=== PATIENT | male | born 1940 | race Caucasian/White ===

== ENCOUNTER 2017-04-02 14:40 | Outpatient (CLI) | payer MEDICARE ==
[2017-04-02 19:06] LABS: BASOPHILS % (AUTO) 0.5 %; EOSINOPHILS % (AUTO) 0.1 %; HGB - HEMOGLOBIN 13.5 g/dL (14.0-18.0); LYMPHOCYTES # (AUTO) 0.9 10^3/uL (1.5-3.5); LYMPHOCYTES % (AUTO) 10.1 %; MEAN CORPUSCULAR HEMOGLOBIN 31.7 pg (27.0-31.0); MEAN CORPUSCULAR HGB CONC 34.1 g/dL (32.0-36.0); MEAN CORPUSCULAR VOLUME 92.8 fL (80.0-94.0); MEAN PLATELET VOLUME 8.3 fL (7.4-11.4); MONOCYTES # (AUTO) 0.5 10^3/uL (0.0-1.0); NEUTROPHILS # (AUTO) 7.1 10^3/uL (1.5-6.6); NEUTROPHILS % (AUTO) 83.3 %; PLT - PLATELET COUNT 350 10^3/uL (130-450); RED BLOOD COUNT 4.27 10^6/uL (4.70-6.10); RED CELL DISTRIBUTION WIDTH 13.4 % (12.0-15.0); WHITE BLOOD COUNT 8.5 x10^3/uL (4.8-10.8)
== END 2017-04-02 14:41 | disposition home or self-care (01) ==
LOC: LAB.WCP 14:40
PROVIDERS: ATTEND Family Medicine
DX: M35.3 Polymyalgia rheumatica (principal); D64.9 Anemia, unspecified
CPT/HCPCS: 36415; 85025; 85651; 86140

== ENCOUNTER 2017-05-17 08:00 | Outpatient (CLI) | payer MEDICARE, OTHER ==
[2017-05-17 12:30] LABS: BASOPHILS # (AUTO) 0.1 10^3/uL (0.0-0.1); BASOPHILS % (AUTO) 0.6 %; EOSINOPHILS # (AUTO) 0.1 10^3/uL (0.0-0.7); EOSINOPHILS % (AUTO) 0.8 %; HGB - HEMOGLOBIN 13.8 g/dL (14.0-18.0); LYMPHOCYTES # (AUTO) 1.6 10^3/uL (1.5-3.5); LYMPHOCYTES % (AUTO) 13.9 %; MEAN CORPUSCULAR HEMOGLOBIN 31.5 pg (27.0-31.0); MEAN CORPUSCULAR HGB CONC 34.3 g/dL (32.0-36.0); MEAN CORPUSCULAR VOLUME 91.9 fL (80.0-94.0); MEAN PLATELET VOLUME 7.7 fL (7.4-11.4); MONOCYTES # (AUTO) 0.9 10^3/uL (0.0-1.0); MONOCYTES % (AUTO) 7.7 %; NEUTROPHILS # (AUTO) 8.9 10^3/uL (1.5-6.6); PLT - PLATELET COUNT 309 10^3/uL (130-450); RED BLOOD COUNT 4.39 10^6/uL (4.70-6.10); RED CELL DISTRIBUTION WIDTH 14.4 % (12.0-15.0); WHITE BLOOD COUNT 11.5 x10^3/uL (4.8-10.8)
== END 2017-05-17 08:01 | disposition home or self-care (01) ==
LOC: LAB.WCP 08:00
PROVIDERS: ATTEND Family Medicine
DX: M35.3 Polymyalgia rheumatica (principal); D64.9 Anemia, unspecified
CPT/HCPCS: 36415; 82728; 85025; 85651; 86140

== ENCOUNTER 2017-05-22 12:07 | Outpatient (CLI) | payer MEDICARE, OTHER | END 2017-05-22 12:08 | disposition home or self-care (01) | LOC: LAB 12:07 | PROVIDERS: ATTEND Family Medicine | DX: M79.604 Pain in right leg (principal); R60.9 Edema, unspecified ==

== ENCOUNTER 2017-06-30 11:21 | Outpatient (CLI) | payer MEDICARE, OTHER ==
[2017-06-30 19:21] LABS: HGB - HEMOGLOBIN 12.9 g/dL (14.0-18.0); MEAN CORPUSCULAR HEMOGLOBIN 31.1 pg (27.0-31.0); MEAN CORPUSCULAR HGB CONC 33.5 g/dL (32.0-36.0); MEAN CORPUSCULAR VOLUME 93.1 fL (80.0-94.0); RED BLOOD COUNT 4.14 10^6/uL (4.70-6.10); RED CELL DISTRIBUTION WIDTH 15.6 % (12.0-15.0); WHITE BLOOD COUNT 8.2 x10^3/uL (4.8-10.8)
[2017-06-30 19:29] LABS: CALCIUM 8.9 mg/dL (8.5-10.3); CREATININE 0.7 mg/dL (0.6-1.2)
[2017-06-30 19:42] LABS: THYROID STIMULATING HORMONE 1.4 uIU/mL (0.34-5.60)
[2017-06-30 19:44] LABS: FREE T4 (FREE THYROXINE) 1.07 ng/dL (0.58-1.64)
== END 2017-06-30 11:22 ==
LOC: LAB.WCP 11:21
PROVIDERS: ATTEND Family Medicine
DX: R00.0 Tachycardia, unspecified (principal); R60.9 Edema, unspecified; D64.9 Anemia, unspecified
CPT/HCPCS: 36415; 80048; 83880; 84439; 84443; 84481; 85027

== ENCOUNTER 2017-07-02 11:12 | Outpatient (CLI) | payer MEDICARE, OTHER | END 2017-07-02 11:13 | disposition home or self-care (01) | LOC: DI 11:12 | PROVIDERS: ATTEND Family Medicine | DX: R00.0 Tachycardia, unspecified (principal); R60.9 Edema, unspecified | CPT/HCPCS: 93306 ==

== ENCOUNTER 2018-10-19 08:00 | Outpatient (CLI) | payer MEDICARE, OTHER ==
[2018-10-19 13:04] LABS: BASOPHILS # (AUTO) 0.1 10^3/uL (0.0-0.1); BASOPHILS % (AUTO) 0.9 %; EOSINOPHILS # (AUTO) 0.1 10^3/uL (0.0-0.7); EOSINOPHILS % (AUTO) 1.5 %; HGB - HEMOGLOBIN 12.1 g/dL (14.0-18.0); LYMPHOCYTES # (AUTO) 1.7 10^3/uL (1.5-3.5); MEAN CORPUSCULAR HEMOGLOBIN 29.9 pg (27.0-31.0); MEAN CORPUSCULAR HGB CONC 33.2 g/dL (32.0-36.0); MEAN CORPUSCULAR VOLUME 90.1 fL (80.0-94.0); MEAN PLATELET VOLUME 9.4 fL (7.4-11.4); MONOCYTES % (AUTO) 10.4 %; NEUTROPHILS # (AUTO) 6.6 10^3/uL (1.5-6.6); NEUTROPHILS % (AUTO) 68.5 %; PLT - PLATELET COUNT 290 10^3/uL (130-450); RED BLOOD COUNT 4.05 10^6/uL (4.70-6.10); WHITE BLOOD COUNT 9.6 x10^3/uL (4.8-10.8)
[2018-10-19 13:06] LABS: ALBUMIN 3.6 g/dL (3.2-5.5); ALBUMIN/GLOBULIN RATIO 1.1 (1.0-2.2); BILIRUBIN,TOTAL 0.4 mg/dL (0.2-1.0); CALCIUM 9.1 mg/dL (8.5-10.3); CREATININE 0.9 mg/dL (0.6-1.2); TOTAL PROTEIN 6.9 g/dL (6.7-8.2)
== END 2018-10-19 23:59 | disposition home or self-care (01) ==
LOC: LAB.WCP 08:00
PROVIDERS: ATTEND Internal Medicine Rheumatology
DX: M05.79 Rheumatoid arthritis with rheumatoid factor of multiple sites without organ or systems involvement (principal)
CPT/HCPCS: 36415; 80053; 81599; 85025; 85651; 86480

== ENCOUNTER 2018-11-04 10:49 | Outpatient (CLI) | payer MEDICARE, OTHER ==
--- NOTE | 2018-11-04 14:10 | DEXA Report ---
Reason: OSTEOPOROSIS Procedure Date: 11/04/2018 Accession Number: [id number] / [id number] Procedure: DEX - Dexa Spine and/or Hip CPT Code: FULL RESULT: EXAM: Dexa Spine and/or Hip DATE: 11/04/2018 11:46 AM CLINICAL HISTORY: Rheumatoid arthritis, prednisone use TECHNIQUE: Dual energy x-ray absorptiometry (DXA) was performed on a [employer] System. Regions measured are the AP Spine, femoral neck, and if needed forearm. COMPARISON: None. In accordance with the International Society for Clinical Densitometry (ISCD) guidelines, data from previous exams may be reanalyzed using current recommendations and techniques. This is done to allow a more accurate basis for comparison with the current study. FINDINGS: The data for the lumbar spine is as follows: BMD (g/cm/cm) T-SCORE Z-SCORE REGION L1 1.025 -1.1 -0.5 L2 1.137 -0.9 -0.3 L3 1.167 -0.6 0.0 L4 1.370 1.1 1.7 TOTAL 1.191 -0.2 0.3 NOTE: All evaluable vertebrae are used for classification The data for the hip is as follows: BMD (g/cm/cm) T-SCORE Z-SCORE REGION Neck 0.734 -2.6 -1.2 TOTAL 0.744 -2.5 -1.6 NOTE: The femoral neck or total proximal femur, whichever is lowest, is used for classification. IMPRESSION: THE WHO CLASSIFICATION BASED ON THE INTERNATIONAL REFERENCE STANDARD IS OSTEOPOROSIS, REFERENCE LEFT FEMORAL NECK. THE FRACTURE RISK IS HIGH. RECOMMENDATION: Patients with diagnosis of osteoporosis or osteopenia should have regular bone mineral density assessment. For those eligible for Medicare, routine testing is allowed once every 2 years. Testing frequency can be increased for patients who have rapidly progressing disease or for those who are receiving medical therapy to restore bone mass. COMMENT: World Health Organization (WHO) definitions for osteoporosis and osteopenia: NORMAL BMD: T-score at -1.0 or higher, fracture risk is low OSTEOPENIA BMD: T-score between -1.0 and -2.5, fracture risk is increased. OSTEOPOROSIS BMD: T-score at -2.5 or lower, fracture risk is high. National Osteoporosis Foundation recommends: 1. Obtain adequate dietary calcium (at least 1200 mg per day) and vitamin D (400-800 international units per day). 2. Participate, as appropriate, in regular weightbearing and muscle-strengthening exercise. 3. Avoid tobacco use and reduce alcohol and caffeine intake. 4. For more detailed information see the website at www.NOF.org.
== END 2018-11-04 10:50 | disposition home or self-care (01) ==
LOC: DI 10:49
PROVIDERS: ATTEND Internal Medicine Rheumatology
DX: M81.0 Age-related osteoporosis without current pathological fracture (principal)
CPT/HCPCS: 77080

== ENCOUNTER 2020-08-21 14:36 | Outpatient (CLI) | payer MEDICARE, OTHER ==
[2020-08-21 18:13] LABS: ALBUMIN 4.1 g/dL (3.2-5.5); ALBUMIN/GLOBULIN RATIO 1.4 (1.0-2.2); CALCIUM 9.4 mg/dL (8.5-10.3); CREATININE 0.9 mg/dL (0.6-1.2); POTASSIUM 3.9 mmol/L (3.5-5.0); TOTAL PROTEIN 7.1 g/dL (6.7-8.2)
[2020-08-21 18:27] LABS: BASOPHILS # (AUTO) 0.1 10^3/uL (0.0-0.1); BASOPHILS % (AUTO) 1.3 %; EOSINOPHILS # (AUTO) 0.2 10^3/uL (0.0-0.7); EOSINOPHILS % (AUTO) 1.9 %; HGB - HEMOGLOBIN 12.7 g/dL (14.0-18.0); LYMPHOCYTES # (AUTO) 1.6 10^3/uL (1.5-3.5); LYMPHOCYTES % (AUTO) 18.5 %; MEAN CORPUSCULAR HEMOGLOBIN 31.7 pg (27.0-31.0); MEAN CORPUSCULAR HGB CONC 32.6 g/dL (32.0-36.0); MEAN CORPUSCULAR VOLUME 97.3 fL (80.0-94.0); MEAN PLATELET VOLUME 9.8 fL (7.4-11.4); MONOCYTES # (AUTO) 1.1 10^3/uL (0.0-1.0); MONOCYTES % (AUTO) 12.6 %; NEUTROPHILS # (AUTO) 5.6 10^3/uL (1.5-6.6); NEUTROPHILS % (AUTO) 65.1 %; PLT - PLATELET COUNT 356 10^3/uL (130-450); RED BLOOD COUNT 4.01 10^6/uL (4.70-6.10); RED CELL DISTRIBUTION WIDTH 13.2 % (12.0-15.0); WHITE BLOOD COUNT 8.6 x10^3/uL (4.8-10.8)
== END 2020-08-21 23:59 | disposition home or self-care (01) ==
LOC: LAB.WCP 14:36
PROVIDERS: ATTEND Internal Medicine Rheumatology
DX: M05.79 Rheumatoid arthritis with rheumatoid factor of multiple sites without organ or systems involvement (principal)
CPT/HCPCS: 36415; 80053; 85025; 85651

== ENCOUNTER 2020-09-03 13:53 | Outpatient (CLI) | payer MEDICARE, OTHER | END 2020-09-03 23:59 | disposition home or self-care (01) | LOC: LAB.WCP 13:53 | PROVIDERS: ATTEND Family Medicine | DX: R05 Cough (principal); Z20.822 Contact with and (suspected) exposure to COVID-19 ==

== ENCOUNTER 2020-09-03 15:53 | Outpatient (CLI) | payer MEDICARE, OTHER ==
--- NOTE | 2020-09-05 13:18 | XRAY Report ---
PROCEDURE: Chest 2 View X-Ray INDICATIONS: COUGH TECHNIQUE: 2 view(s) of the chest. COMPARISON: None. FINDINGS: Surgical changes and devices: None. Lungs and pleura: No pleural effusions or pneumothorax. Lungs are clear, aside from mild lingular a irspace opacity. Hilar hernia present. Mediastinum: Mediastinal contours are normal. Heart size is normal. Bones and chest wall: No suspicious bony abnormalities. Soft tissues appear unremarkable. IMPRESSION: Mild subtle lingular airspace opacity which could represent early pneumonia. Recommend c linical correlation and follow-up. Follow-up chest radiography to complete resolution is recommended. Reviewed by: ROJELIO Herrera on 09/05/2020 1:17 PM PDT Approved by: Octavio Karimi on 09/05/2020 1:17 PM PDT Station ID: [id number]
== END 2020-09-03 15:54 | disposition home or self-care (01) ==
LOC: DI.N 15:53
PROVIDERS: ATTEND Family Medicine
DX: R91.8 Other nonspecific abnormal finding of lung field (principal); R05 Cough; Z20.822 Contact with and (suspected) exposure to COVID-19
CPT/HCPCS: 71046; U0004

== ENCOUNTER 2020-12-25 11:40 | Outpatient (CLI) | payer MEDICARE, OTHER ==
[2020-12-25 17:50] LABS: BASOPHILS # (AUTO) 0.1 10^3/uL (0.0-0.1); BASOPHILS % (AUTO) 1.3 %; EOSINOPHILS # (AUTO) 0.1 10^3/uL (0.0-0.7); EOSINOPHILS % (AUTO) 1.8 %; HCT - HEMATOCRIT 40.3 % (42.0-52.0); HGB - HEMOGLOBIN 13.6 g/dL (14.0-18.0); LYMPHOCYTES # (AUTO) 1.7 10^3/uL (1.5-3.5); LYMPHOCYTES % (AUTO) 27.4 %; MEAN CORPUSCULAR HEMOGLOBIN 32.3 pg (27.0-31.0); MEAN CORPUSCULAR HGB CONC 33.7 g/dL (32.0-36.0); MEAN CORPUSCULAR VOLUME 95.7 fL (80.0-94.0); MEAN PLATELET VOLUME 10.1 fL (7.4-11.4); MONOCYTES # (AUTO) 0.9 10^3/uL (0.0-1.0); MONOCYTES % (AUTO) 13.9 %; NEUTROPHILS # (AUTO) 3.4 10^3/uL (1.5-6.6); NEUTROPHILS % (AUTO) 55.3 %; PLT - PLATELET COUNT 274 10^3/uL (130-450); RED BLOOD COUNT 4.21 10^6/uL (4.70-6.10); RED CELL DISTRIBUTION WIDTH 13.2 % (12.0-15.0); WHITE BLOOD COUNT 6.1 x10^3/uL (4.8-10.8)
[2020-12-25 18:23] LABS: ALBUMIN 3.9 g/dL (3.2-5.5); ALBUMIN/GLOBULIN RATIO 1.4 (1.0-2.2); BILIRUBIN,TOTAL 0.8 mg/dL (0.2-1.0); CALCIUM 9.3 mg/dL (8.5-10.3); CREATININE 0.9 mg/dL (0.6-1.2); POTASSIUM 4.4 mmol/L (3.5-5.0); TOTAL PROTEIN 6.7 g/dL (6.7-8.2)
== END 2020-12-25 23:59 | disposition home or self-care (01) ==
LOC: LAB.WCP 11:40
PROVIDERS: ATTEND Internal Medicine Rheumatology
DX: M05.79 Rheumatoid arthritis with rheumatoid factor of multiple sites without organ or systems involvement (principal)
CPT/HCPCS: 36415; 80053; 85025; 85651

== ENCOUNTER 2021-10-21 09:12 | Outpatient (CLI) | payer MEDICARE, OTHER | END 2021-10-21 09:13 | disposition home or self-care (01) | LOC: DI 09:12 | PROVIDERS: ATTEND Family Medicine | DX: R06.09 Other forms of dyspnea (principal); I51.7 Cardiomegaly; I77.810 Thoracic aortic ectasia | CPT/HCPCS: 93306 ==

== ENCOUNTER 2022-07-03 14:37 | Outpatient (CLI) | payer MEDICARE, OTHER ==
[2022-07-03 14:53] LABS: BASOPHILS # (AUTO) 0.1 10^3/uL (0.0-0.1); EOSINOPHILS # (AUTO) 0.1 10^3/uL (0.0-0.7); EOSINOPHILS % (AUTO) 1.6 %; HCT - HEMATOCRIT 36.7 % (42.0-52.0); HGB - HEMOGLOBIN 12.2 g/dL (14.0-18.0); LYMPHOCYTES # (AUTO) 1.7 10^3/uL (1.5-3.5); LYMPHOCYTES % (AUTO) 20.5 %; MEAN CORPUSCULAR HEMOGLOBIN 32.4 pg (27.0-31.0); MEAN CORPUSCULAR HGB CONC 33.2 g/dL (32.0-36.0); MEAN CORPUSCULAR VOLUME 97.6 fL (80.0-94.0); MEAN PLATELET VOLUME 9.3 fL (7.4-11.4); MONOCYTES # (AUTO) 0.7 10^3/uL (0.0-1.0); MONOCYTES % (AUTO) 8.6 %; NEUTROPHILS # (AUTO) 5.5 10^3/uL (1.5-6.6); NEUTROPHILS % (AUTO) 67.9 %; PLT - PLATELET COUNT 297 10^3/uL (130-450); RED BLOOD COUNT 3.76 10^6/uL (4.70-6.10); RED CELL DISTRIBUTION WIDTH 14.7 % (12.0-15.0); WHITE BLOOD COUNT 8.1 x10^3/uL (4.8-10.8)
[2022-07-03 15:31] LABS: THYROID STIMULATING HORMONE 2.06 uIU/mL (0.34-5.60)
[2022-07-03 15:35] LABS: ALBUMIN 3.7 g/dL (3.2-5.5); ALBUMIN/GLOBULIN RATIO 1.2 (1.0-2.2); ALKALINE PHOSPHATASE 51 IU/L (42-121); ALT ALANINE AMINOTRANSFERASE 19 IU/L (10-60); AST ASPARTATE AMINOTRANSFERASE 22 IU/L (10-42); BILIRUBIN,TOTAL 1.6 mg/dL (0.2-1.0); BUN - BLOOD UREA NITROGEN 16 mg/dL (6-20); CALCIUM 9.1 mg/dL (8.5-10.3); CARBON DIOXIDE - CO2 24 mmol/L (21-32); CHLORIDE 108 mmol/L (101-111); CHOL/HDL RATIO 2.3 (<5.0); CHOLESTEROL 227 mg/dL; CREATININE 0.9 mg/dL (0.6-1.2); GFR - MDRD 81 (>89); GLUCOSE 92 mg/dL (70-100); HDL CHOLESTEROL 100 mg/dL; POTASSIUM 4.1 mmol/L (3.5-5.0); SODIUM 139 mmol/L (135-145); TOTAL PROTEIN 6.7 g/dL (6.7-8.2); TRIGLYCERIDES 39 mg/dL
[2022-07-03 20:21] LABS: ESTIMATED AVERAGE GLUCOSE 100 mg/dL (70-100); HEMOGLOBIN A1c% 5.1 % (4.27-6.07)
== END 2022-07-03 14:38 | disposition home or self-care (01) ==
LOC: LAB 14:37
PROVIDERS: ATTEND Nurse Practitioner Family
DX: Z00.00 Encounter for general adult medical examination without abnormal findings (principal); E66.9 Obesity, unspecified; E78.5 Hyperlipidemia, unspecified
CPT/HCPCS: 36415; 80053; 80061; 83036; 83721; 84443; 85025

== ENCOUNTER 2022-07-03 15:30 | Emergency (ER) | payer MEDICARE, OTHER ==
--- NOTE | 2022-07-03 16:54 | XRAY Report ---
PROCEDURE: Knee 4 View LT INDICATIONS: knee inj TECHNIQUE: 4 views of the left knee(s) were acquired. COMPARISON: None. FINDINGS: Bones: No fractures or dislocations. No suspicious bony lesions. Severe degenerative arthritis wi th bulky tricompartmental osteophytes, severe medial compartment joint space loss, and moderate later al compartment joint space loss. Soft tissues: Trace knee joint effusion. No suspicious soft tissue calcifications or masses. IMPRESSION: No acute bony abnormality. Severe degenerative arthritis of the left knee. Reviewed by: Simone Espitia MD on 07/03/2022 4:53 PM PDT Approved by: Simone Espitia MD on 07/03/2022 4:53 PM PDT Station ID: [id number]
--- NOTE | 2022-07-03 16:58 | ED Physician Documentation ---
PD HPI UPPER EXT INJURY - Stated complaint Stated Complaint: L KNEE INJ - Chief complaint Chief Complaint: Trauma Ext - History obtained from History obtained from: Patient - Additonal information Additional information: He fell a few days ago, he is not sure if he injured his left knee then. He does have rheumatoid arthritis. Starting last night he has severe posterior left knee pain and he cannot straighten the leg. PD PAST MEDICAL HISTORY - Past Medical History Musculoskeletal: Rheumatoid arthritis - Present Medications Home Medications: Ambulatory Orders Medication Instructions Recorded Confirmed B-Complex with Vitamin C [Vitamin 1 each PO 09/13/18 B-Complex with Vit C] Cholecalciferol (Vitamin D3) 1,000 unit PO 09/13/18 [Vitamin D3] Digestive 8/L.acidoph/Pectin 1 each PO 09/13/18 [Digestive Enzymes Tablet] Krill/[place]-3/Dha/Epa/Lipids 1 each PO 09/13/18 [Krill Oil 350 mg Softgel] L.acid/L.casei/B.bif/B.abdoulaye/Fos 1 each PO 09/13/18 [Probiotic Blend Capsule] Methotrexate Sodium/Pf 10 mg IJ Q7D 09/13/18 09/13/18 [Methotrexate 50 mg/2 ml Vial] [place]-3/Dha/Epa/Fish Oil [Fish Oil 1 each PO 09/13/18 1,000 mg Softgel] Tumeric 1 cap PO DAILY 09/13/18 Ubidecarenone/Vit E Acet [Co Q-10 1 each PO 09/13/18 100 mg Softgel] methylPREDNISolone 4 tab PO BID 09/13/18 09/13/18 [Methylprednisolone] HYDROcod/ACETAM 5/325 [[place] 5/325] 1 - 2 tab PO Q6H PRN #15 tablet 07/03/22 predniSONE [Deltasone] 20 mg PO [id number] #21 tab 07/03/22 - Allergies Allergies/Adverse Reactions: Allergies Allergy/AdvReac Type Severity Reaction Status Date / Time No Known Drug Allergies Allergy Verified 07/03/22 15:50 PD ED PE NORMAL - Vitals Vital signs reviewed: Yes - General General: Alert and oriented X 3, No acute distress - Extremities Extremities: Other (Both knees have effusions. Neither or warm nor red nor tender anteriorly. He is tender over the insertion of the hamstring tendon posteriorly. Bedside ultrasound does not demonstrate a DVT in that area nor a Hart's cyst.) - Neuro Neuro: Alert and oriented X 3, Normal speech Results - Vitals Vitals: Vital Signs - 24 hr 07/03/22 07/03/22 15:45 17:28 Temperature 36.1 C L Heart Rate 62 60 Respiratory 16 16 Rate Blood Pressure 121/67 148/75 H O2 Saturation 96 99 Oxygen O2 Source Room air - Rads (name of study) 4 view x-ray of the left knee shows severe degenerative changes without fracture Relevant Findings:: Final report received, EMP independent interpretation of test PD Medical Decision Making - ED course ED course: Seems like hamstring tendinitis. He is placed in a locked knee brace in flexion as it is extension that really hurts him and given some steroids and hydrocodone pending orthopedic follow-up. Departure - Departure Disposition: 01 Home, Self Care Clinical Impression: Hamstring tendinitis of left thigh Condition: Good Record reviewed to determine appropriate education?: Yes Instructions: ED Knee Pain [facility] Follow-Up: Orthopedic Care [Provider Group] Prescriptions: predniSONE [Deltasone] 20 mg PO [id number] #21 tab HYDROcod/ACETAM 5/325 [[place] 5/325] 1 - 2 tab PO Q6H PRN #15 tablet PRN Reason: Pain Comments: I sent your prescriptions electronically to [facility] in [place]. You should follow-up with the orthopedic surgeon in a week or 2. Return for new or worsening symptoms. You can wear the locked knee brace for comfort, you do not need to wear it when sitting in bed. I am prescribing a short course of narcotic pain medication for you. These are potentially dangerous and addictive medications that should be used carefully. These medications may constipate you. Take an agic-ijm-zybxijs stool softener (docusate) twice daily with plenty of water while taking these medications. If you go 24 hours without a bowel movement, take xigu-rwb-xnyqvws miralax, per package instructions. Do not drink or drive while taking these medications. If you received narcotic or sedating medications while in the emergency department, do not drive for 24 hours. Store this medication in a safe, secure place and out of reach of children. It is a violation of federal law to give or sell this medication to another person or to use in a manner other than prescribed. The ED will not refill narcotic prescriptions, including prescriptions lost or stolen. To dispose of unwanted medications: 1. [facility] at [address] in [place] has a medication drop box. They accept prescription medications (in pill form) Wednesday through Wednesday 9:00 a.m. to 5:00 p.m. 2. The [facility] accepts prescription medications (in pill form only) for disposal year round. Call for more information. 3. Contact the [facility] for the next [facility] sponsored prescription drug collection event. , [phone], or [phone]; Note that many narcotic pain relievers also contain Tylenol/acetaminophen. Please ensure that your total dose of acetaminophen from all sources does not exceed 3 g (3000 mg) per day. Discharge Date/Time: 07/03/22 17:29
[2022-07-03 17:30] VITALS: BP 148/75
== END 2022-07-03 17:29 | disposition home or self-care (01) ==
LOC: ED 15:30
DX: M76.892 Other specified enthesopathies of left lower limb, excluding foot (principal); Z00.00 Encounter for general adult medical examination without abnormal findings; E66.9 Obesity, unspecified; E78.5 Hyperlipidemia, unspecified
CPT/HCPCS: 36415; 80053; 80061; 83036; 83721; 84443; 85025; 99283; 99284

== ENCOUNTER 2022-08-17 11:37 | Outpatient (CLI) | payer MEDICARE, OTHER ==
[2022-08-17 12:15] LABS: BASOPHILS # (AUTO) 0.1 10^3/uL (0.0-0.1); BASOPHILS % (AUTO) 0.8 %; EOSINOPHILS # (AUTO) 0.2 10^3/uL (0.0-0.7); EOSINOPHILS % (AUTO) 2.3 %; HCT - HEMATOCRIT 35.2 % (42.0-52.0); HGB - HEMOGLOBIN 11.7 g/dL (14.0-18.0); LYMPHOCYTES # (AUTO) 1.7 10^3/uL (1.5-3.5); LYMPHOCYTES % (AUTO) 17.8 %; MEAN CORPUSCULAR HEMOGLOBIN 32.8 pg (27.0-31.0); MEAN CORPUSCULAR HGB CONC 33.2 g/dL (32.0-36.0); MEAN CORPUSCULAR VOLUME 98.6 fL (80.0-94.0); MEAN PLATELET VOLUME 9.3 fL (7.4-11.4); MONOCYTES # (AUTO) 1.3 10^3/uL (0.0-1.0); MONOCYTES % (AUTO) 13.7 %; NEUTROPHILS # (AUTO) 6.1 10^3/uL (1.5-6.6); PLT - PLATELET COUNT 277 10^3/uL (130-450); RED BLOOD COUNT 3.57 10^6/uL (4.70-6.10); RED CELL DISTRIBUTION WIDTH 14.5 % (12.0-15.0); WHITE BLOOD COUNT 9.6 x10^3/uL (4.8-10.8)
[2022-08-17 12:38] LABS: ALBUMIN 3.5 g/dL (3.2-5.5); ALBUMIN/GLOBULIN RATIO 1.2 (1.0-2.2); BILIRUBIN,TOTAL 0.5 mg/dL (0.2-1.0); CALCIUM 8.8 mg/dL (8.5-10.3); CREATININE 0.9 mg/dL (0.6-1.2); POTASSIUM 3.9 mmol/L (3.5-5.0); TOTAL PROTEIN 6.4 g/dL (6.7-8.2); URIC ACID 4.7 mg/dL (2.6-7.2)
--- NOTE | 2022-08-18 09:03 | Ultrasound Report ---
PROCEDURE: Duplex Ext Veins Right INDICATIONS: PEDAL EDEMA, RIGHT LOWER EXTREMITY TECHNIQUE: Real-time imaging, as well as color and pulse Doppler interrogation, were performed of the lower extr emity deep veins from the inguinal ligament to the popliteal fossa. COMPARISON: None. FINDINGS: The deep veins are normally compressible, and free of intraluminal thrombus. Color and pu lse Doppler demonstrate normal phasic intraluminal flow. There is normal augmentation response to di stal compression maneuver. IMPRESSION: No DVT in the right lower extremity. Reviewed by: Octavio Karimi on 08/18/2022 8:01 AM BLUE Approved by: Octavio Karimi on 08/18/2022 8:01 AM BLUE Station ID: [id number]
== END 2022-08-17 11:38 | disposition home or self-care (01) ==
LOC: LAB 11:37
PROVIDERS: ATTEND Nurse Practitioner
DX: M25.571 Pain in right ankle and joints of right foot (principal); R60.0 Localized edema
CPT/HCPCS: 36415; 80053; 84550; 85025

== ENCOUNTER 2022-10-22 13:42 | Outpatient (CLI) | payer MEDICARE, OTHER ==
[2022-10-22 18:12] LABS: FERRITIN 90.1 ng/mL (23.9-336.2)
== END 2022-10-22 13:43 | disposition home or self-care (01) ==
LOC: LAB.N 13:42
PROVIDERS: ATTEND Nurse Practitioner Family
DX: D53.9 Nutritional anemia, unspecified (principal)
CPT/HCPCS: 36415; 82607; 82728; 82746; 83540; 84466

== ENCOUNTER 2022-10-27 12:22 | Outpatient (CLI) | payer MEDICARE, OTHER ==
[2022-10-27 12:41] LABS: FECAL OCCULT BLOOD (FIT) NEGATIVE (NEGATIVE)
--- NOTE | 2022-10-27 12:55 | XRAY Report ---
PROCEDURE: Chest 2 View X-Ray INDICATIONS: SOB TECHNIQUE: 2 views of the chest were acquired. COMPARISON: Chest x-ray 09/03/2020 FINDINGS: Surgical changes and devices: None. Lungs and pleura: No pleural effusions or pneumothorax. Lungs are clear. Mediastinum: Mediastinal contours demonstrate retrocardiac lucency suggestive of hiatal hernia. Hear t size is enlarged. Bones and chest wall: No suspicious bony lesions. Overlying soft tissues appear unremarkable. IMPRESSION: No acute cardiopulmonary process. Reviewed by: Sushma Lopes MD on 10/27/2022 12:53 PM PDT Approved by: Sushma Lopes MD on 10/27/2022 12:53 PM PDT Station ID: [id number]
== END 2022-10-27 12:23 | disposition home or self-care (01) ==
LOC: DI 12:22
PROVIDERS: ATTEND Nurse Practitioner Family
DX: R06.02 Shortness of breath (principal); Z86.2 Personal history of diseases of the blood and blood-forming organs and certain disorders involving the immune mechanism; D53.9 Nutritional anemia, unspecified
CPT/HCPCS: 82274

== ENCOUNTER 2022-11-26 09:17 | Outpatient (CLI) | payer MEDICARE, OTHER ==
--- NOTE | 2022-11-26 10:10 | Sleep Patient Instructions ---
Sleep Center Visit Summary - Patient Visit Information Reason for Visit: Initial consult for evaluation of sleep disordered breathing and other sleep issues. - Patient Instructions Instructions Attached: Sleep Study, Sleep Clinic Visit, Sleep Study Home Monitor Additional Instructions: You will be completing a sleep study, either an in-lab polysomnography (PSG) or home sleep study (HST). You will follow-up in the sleep care office after the sleep study is completed to hear the results and talk about therapy, if needed. You will be called by our office staff to schedule this appointment, but you may contact us with any questions. - Clinic Information Contact: [facility] [address] [place] [address] [email or web address] T: [phone]
--- NOTE | 2022-11-26 10:14 | SLEEP CARE CONSULTATION ---
Information from patient questionnaire entered by Jose Kimbrough. I have reviewed and concur with the information entered by Jose Kimbrough. This document represents the service I personally performed and the decisions made by me, Shaye Keys ARNP. History of Present Illness Service Date and Time: 11/26/2022916 Reason for Visit: New patient, Previously diagnosed sleep apnea Chief Complaint: reports: Frequent awakenings at night Date of Onset: for 5 to 10 years Usual bedtime: 9 PM - 10 PM Time it takes to fall asleep: 5 to 10 minutes Snores at night: Yes Observed to quit breathing while asleep: Yes Sleeps alone due to snoring: Yes Number of times waking at night: 3 or 4 times Reasons for waking at night: reports: Bathroom. denies: Choking, Gasping for air Toss, Turn, or Twitch while sleeping: No Recalls having dreams: Yes Usually gets out of bed at: 6 to 7 AM Feels refreshed in the morning: Yes Morning headache: No Sleepy or fatigued during the day: Yes (Sometimes) Ever fallen asleep while driving: Yes (drowsy driving, no accidents) Takes day naps: Yes (Sometimes; couple times a month) Dreams during day naps: No Prior sleep studies: Yes Year and Where: 5 or 6 years ago - [facility] Additional HPI information: I had the pleasure of seeing TERRANCE WIN today regarding the possibility of him having a sleep disorder. His current complaint is frequent night awakenings. He was diagnosed with sleep apnea and put on a CPAP about 5-6 years ago but he is not currently using his CPAP. He still has his ResMed Airsense machine that was set on 6-12 cmH2O that he got from [employer]. He states he could not use the mask because he has difficulty breathing through his nose. His tells him that he snores "terribly" and will stop breathing when sleeping. He is currently sleeping separately because of the loud snoring. He has rheumatoid arthritis and is suppose to start PT. - Parasomnia Symptoms Ever been unable to move upon waking from sleep: No Walks in sleep: No Talks in sleep: No Ever acted out dreams in sleep: No Ever felt weak in the knees when startled or emotional: No Bothered by creepy, crawly, restless sensations in legs: No Problems with memory or concentration: No CPAP Compliance Data Compliance data discussion: He has a ResMed Airsense CPAP machine set at 6-12 cmH2O. He was using a nasal mask but could not use it because he is a mouth breather. He tried to use it but nothing regular. He has not used it for 5 years. Subjective Initial [place] Sleepiness Scale score: 4 (in 2022) Past Medical History Past Medical History: reports: Arthritis (Rheumatoid), Anemia Social History The patient's occupation is a retiree. Patient is and lives in [place]. Have you smoked in the past 12 months: No Alcohol use: Yes Alcohol amount and frequency: 1 or 2 most nights Caffeine use: Yes Caffeine amount and frequency: 2 or 3 cups daily Family History Family history of sleep disordered breathing: No Allergies and Home Medications Known drug allergies: No Drug allergies reviewed: Yes Home medication list reviewed: Yes (as listed) Allergy and home medication list: Allergies No Known Drug Allergies Allergy (Verified 11/25/22 08:41) Home Medications Medication Instructions Recorded Confirmed Last Taken Type Cholecalciferol (Vitamin D3) 1,000 unit PO 09/13/18 Unknown History [Vitamin D3] Digestive 8/L.acidoph/Pectin 1 each PO 09/13/18 Unknown History [Digestive Enzymes Tablet] L.acid/L.casei/B.bif/B.abdoulaye/Fos 1 each PO 09/13/18 Unknown History [Probiotic Blend Capsule] Methotrexate Sodium/Pf 10 mg IJ Q7D 09/13/18 11/26/22 Unknown History [Methotrexate 50 mg/2 ml Vial] Tumeric 1 cap PO DAILY 09/13/18 11/26/22 Unknown History Review of Systems Cardiovascular: denies: high blood pressure Gastrointestinal: denies: heartburn Neurological: denies: headaches Psychiatric: denies: anxiety, depression Ear/Nose/Throat: reports: injury to nose, tonsillectomy Endocrine: reports: sluggishness (/tired) Physical Exam Vital signs obtained and entered by: Shaye Martinez NP Blood Pressure: 142/87 Cuff size: wrist (right) Heart Rate: 61 O2 Saturation: 97 Height: 5 ft 10 in Weight: 206 lb 9.6 oz Body Mass Index: 29.6 BMI Classification: Overweight Neck circumference: 15.5 (inches) Mouth and throat: narrow oropharynx Soft palate: long Hard palate: normal Uvula: normal Uvula visualization: 0% Mallampati Class IV Tongue: normal in size Tonsils: absent bilaterally Neck: normal w/o lymphadenopathy or thyromegaly Heart: irregular rhythm Lungs: clear bilaterally Impression and Plan 1. Suspected Obstructive Sleep Apnea-Hypopnea Syndrome, as previously diagnosed and as suggested by a history of loud and irregular snoring, observed cessation of breath while asleep and frequent awakening during the night. He had a previous study which he said showed him probably moderate to severe sleep apnea. I do not have a copy of that study. He has not been using his CPAP in 5 years or more. I recommend proceeding to polysomnography to confirm the diagnosis and to assess severity. I obtained agreement to proceed. The pathophysiology of obstructive sleep apnea-hypopnea syndrome was discussed with the patient and health risks of cardiovascular and cerebrovascular disease if not treated. Risks of drowsy driving discussed in detail and patient advised to avoid long distance driving and to hook puller at the first sign of drowsiness. Patient agreed to plan. * Schedule polysomnography. * Avoid long distance driving or driving when feeling sleepy. * Avoid alcohol, sedative and muscle relaxant around bedtime. * Attempt to lose weight. * Review instructions provided by trained office staff on how to prepare for the sleep study. * Return for follow-up after sleep study completed. Counseling Topics: Weight loss health impact Plan: PSG and followup Visit Type: In Office Time Spent with Patient (minutes): 32 Provider Statement: I spent 100% of the Face to Face Visit with the patient with greater than 50% spent counseling the patient and coordination of care.
[2022-11-26 10:21] VITALS: BP 142/87; O2SAT 97
== END 2022-11-26 09:18 | disposition home or self-care (01) ==
LOC: SC 09:17
PROVIDERS: ATTEND Nurse Practitioner Family
DX: G47.33 Obstructive sleep apnea (adult) (pediatric) (principal)
CPT/HCPCS: 99203; G0463; 99212

== ENCOUNTER 2022-12-28 20:37 | Outpatient (CLI) | payer MEDICARE, OTHER | END 2022-12-28 20:38 | disposition home or self-care (01) | LOC: SC 20:37 | PROVIDERS: ATTEND Nurse Practitioner Family | DX: G47.33 Obstructive sleep apnea (adult) (pediatric) (principal); G47.61 Periodic limb movement disorder; E66.3 Overweight; Z68.29 Body mass index [BMI] 29.0-29.9, adult | CPT/HCPCS: 95810 ==

== ENCOUNTER 2023-01-13 09:49 | Outpatient (CLI) | payer MEDICARE, OTHER ==
--- NOTE | 2023-01-13 10:23 | Sleep Patient Instructions ---
Sleep Center Visit Summary - Patient Visit Information Reason for Visit: Sleep study follow-up - Patient Instructions Additional Instructions: You are to start Positional therapy to control your sleep apnea. You may obtain positional belts or other commercial devices online. You may also use pillows to position yourself on your side or a T shirt with balls sewn into the back to help keep you on your side to sleep. We would like to follow up with you in a month to check effectiveness of therapy. Please call office to schedule a follow up appointment in the sleep care office in 3 months. - Clinic Information Contact: [facility] [address] [place] [address] [email or web address] T: [phone]
--- NOTE | 2023-01-13 10:26 | SLEEP CARE CONSULTATION ---
Information from patient questionnaire entered by Nadya Hill. I have reviewed and concur with the information entered by Nadya Hill. This document represents the service I personally performed and the decisions made by , Shaye Keys ARNP. History of Present Illness Service Date and Time: 01/13/2023 0949 Initial [place] Sleepiness Scale score: 4 Current [place] Sleepiness Scale score: 4 (01/13/23) Additional HPI information: TERRANCE WIN returns for follow up and results of the recently performed polysomnography. The sleep study showed mild obstructive sleep apnea with an average AHI of 10.5 and ishan oxygen saturation of 87%. I explained the pathophysiology behind obstructive sleep apnea. We then spent quite a bit of time discussing different treatment options. For mild obstructive sleep apnea, surgery and oral appliance are alternatives to nasal CPAP therapy but in moderate or severe cases, nasal CPAP is the most effective and reliable treatment. Because apnea is primarily in supine position, then positional management therapy could be effective. Methods discussed such as positioning with pillows, using a T-shirt with tennis balls in the back or commercial products that have a pillow format on back to prevent supine sleep. I reviewed the impact of weight changes on sleep apnea and strongly recommended losing weight. Patient counseled not drink alcohol less than 4 hours before bedtime as it can increase snoring and apnea. Patient was cautioned about risks of drowsy driving until sleepiness symptoms resolve. Patient denies drowsy driving. Sleep Study - Results Type of Sleep Study: Polysomnography (COMPLETED 12/28/22) Prior sleep studies: Yes Year and Where: 5 or 6 years ago - [facility] Polysomnography/Home Sleep Study results: IMPRESSION: The quality of the study is good. The patient had reduced sleep efficiency due to prolonged awakenings during the night. The sleep architecture was abnormal for sleep fragmentation and reduced amount of time spent in slow wave sleep (N3). Respiratory monitoring showed mild obstructive sleep apnea-hypopnea (AHI = 10.5) associated with frequent arousals, oxyhemoglobin desaturation and mild hypoxia (ishan oxygen saturation of 87%). The respiratory events occurred almost exclusively during supine sleep (supine AHI = 66.1; non-supine = 2.95). Snore was moderate in intensity. There was moderate periodic leg movement of sleep contributing to the sleep fragmentation. Cardiac rhythm was normal sinus rhythm with occasional premature atrial contractions. No abnormal behavior (parasomnia) observed during the night. Allergies and Home Medications Known drug allergies: No Drug allergies reviewed: Yes Home medication list reviewed: Yes (no changes) Allergy and home medication list: Allergies No Known Drug Allergies Allergy (Verified 01/12/23 12:50) Review of Systems Review of systems same as previous: Yes (no changes) Physical Exam Vital signs obtained and entered by: NADYA Jacinto MA Blood Pressure: 120/60 (LEFT ARM) Cuff size: regular Heart Rate: 69 O2 Saturation: 98 Height: 5 ft 9 in Weight: 204 lb 6.4 oz Body Mass Index: 30.2 BMI Classification: Obese Impression and Plan 1. Obstructive Sleep Apnea-Hypopnea Syndrome, mild, with lowest oxygen saturation of 87%. Since patients apnea is primarily in supine position, patient advised to try positional therapy and agreed with plan. He is also advised to lose weight as this will reduce snoring and apnea. An oral appliance can also be used for snoring but often is not covered by insurance. Follow up is scheduled for 3 month to check effectiveness and if further evaluation indicated such a repeat study in supine position only to see if additional treatment indicated. 2. Obesity, unspecified. Currently patients BMI is 30.2. Obesity increases the risk of apnea, CPAP pressure requirements and overall health risks especially cardiovascular and diabetes. Thus patient is advised to lose weight. 3. Periodic limb movement, [moderate], that did contribute to the fragmentation of patients sleep. Periodic limb movement of sleep (PLMS) is characterized by episodes of repetitive limb movements that occur during sleep and usually involve the lower limbs. The etiology is unknown. Sleep hygiene methods can also improve sleep as well as lifestyle changes such as regular exercise. Patient was advised that no treatment is needed at this time. If symptoms increase, then further evaluation is indicated. * Positional therapy. * Attempt to lose weight. * Avoid alcohol consumption near bedtime. * Avoid supine sleep. * Return in 3 months. I will assess response to therapy at that time. Counseling Topics: Sleeping position, Weight loss health impact Follow up with Sleep Care in: 3 months (for Positional therapy) Visit Type: In Office Time Spent with Patient (minutes): 21 Provider Statement: I spent 100% of the Face to Face Visit with the patient with greater than 50% spent counseling the patient and coordination of care.
[2023-01-13 10:33] VITALS: BP 120/60; O2SAT 98
== END 2023-01-13 09:50 | disposition home or self-care (01) ==
LOC: SC 09:49
PROVIDERS: ATTEND Nurse Practitioner Family
DX: G47.33 Obstructive sleep apnea (adult) (pediatric) (principal); E66.9 Obesity, unspecified; Z68.30 Body mass index [BMI] 30.0-30.9, adult; G47.61 Periodic limb movement disorder
CPT/HCPCS: 99213; G0463; 99212

== ENCOUNTER 2023-05-05 14:38 | Outpatient (CLI) | payer MEDICARE, OTHER ==
--- NOTE | 2023-05-05 14:58 | Sleep Patient Instructions ---
Sleep Center Visit Summary - Patient Visit Information Reason for Visit: 3-month positional therapy follow-up - Patient Instructions Additional Instructions: You were here for follow up of Positional therapy. You will be continued on Positional therapy. You should follow up with sleep care in 6 months. You may contact us sooner for any questions or concerns. - Clinic Information Contact: [facility] [address] [place] [address] [email or web address] T: [phone]
--- NOTE | 2023-05-05 15:02 | SLEEP CARE CONSULTATION ---
Information from patient questionnaire entered by Nadya Hill. I have reviewed and concur with the information entered by Nadya Hill. This document represents the service I personally performed and the decisions made by me, Shaye Keys ARNP. History of Present Illness Service Date and Time: 05/05/2023 1438 Previous diagnosis: Mild, Obstructive Sleep Apnea-Hypopnea Syndrome AHI: 10.5 (12/2022) Reason for follow up: three month (F/U POSITIONAL ) Prior sleep studies: Yes Year and Where: 5 or 6 years ago - [facility] Type of Sleep Study: Polysomnography (COMPLETED 12/28/22) HPI additional information: TERRANCE WIN was diagnosed to have mild, AHI 10.5, obstructive sleep apnea- hypopnea syndrome and returned today for Positional therapy three month follow- up. Sleep Study - Results Type of Sleep Study: Polysomnography (COMPLETED 12/28/22) Prior sleep studies: Yes Year and Where: 5 or 6 years ago - [facility] CPAP Compliance Data Compliance data discussion: He prefers side sleeping and feels staying off his back is not a problem. He is not using any device at this time. Subjective On therapy, patient: reports: sleeping better, awakening more refreshed, being more awake and alert during the day, more rested overall. denies: drowsiness while driving Initial Lignum Sleepiness Scale score: 4 Current Lignum Sleepiness Scale score: 3 (05/05/23) Allergies and Home Medications Known drug allergies: No Drug allergies reviewed: Yes Home medication list reviewed: Yes (no changes) Allergy and home medication list: Allergies No Known Drug Allergies Allergy (Verified 05/03/23 11:14) Review of Systems Review of systems same as previous: Yes (NO CHANGE) Physical Exam Vital signs obtained and entered by: NADYA Jacinto MA Blood Pressure: 140/78 (RIGHT ARM) Cuff size: regular Heart Rate: 62 O2 Saturation: 100 Height: 5 ft 9 in Weight: 211 lb 9.6 oz (coat and shoes) Body Mass Index: 31.2 BMI Classification: Obese Impression and Plan 1. Obstructive Sleep Apnea-Hypopnea Syndrome, mild. He had severe apnea events when sleeping supine. Using positional therapy, the patient has good sleep quality and is more rested overall. He feels that positional therapy, avoiding his back, is sustainable. He states he rarely finds himself on his back and is not using any positional assistance including pillows or positional belts. He has no other issues or concerns today.We will follow-up with him in 6 months or longer if he has no issues. Patient's apnea severity and rationale for treatment to reduce apnea, improve sleep quality and reduce cardiovascular and cerebrovascular events was reviewed. 2. Obesity, unspecified. Currently patients BMI is 31.2. Obesity increases the risk of apnea, CPAP pressure requirements and overall health risks especially cardiovascular and diabetes. Thus patient is advised to lose weight. -Continue positional therapy -Maintain a healthy weight -Call this office if any problems -Return for follow up in 6 months, or sooner if concerns arise Counseling Topics: Sleeping position, Weight loss health impact Follow up with Sleep Care in: 6 months Visit Type: In Office Time Spent with Patient (minutes): 12 Provider Statement: I spent 100% of the Face to Face Visit with the patient with greater than 50% spent counseling the patient and coordination of care.
[2023-05-05 15:08] VITALS: BP 140/78; O2SAT 100
== END 2023-05-05 14:39 | disposition home or self-care (01) ==
LOC: SC 14:38
PROVIDERS: ATTEND Nurse Practitioner Family
DX: G47.33 Obstructive sleep apnea (adult) (pediatric) (principal); E66.9 Obesity, unspecified; Z68.31 Body mass index [BMI] 31.0-31.9, adult
CPT/HCPCS: 99212; G0463

== ENCOUNTER 2023-09-21 16:26 | Emergency (ER) | payer MEDICARE, OTHER ==
[2023-09-21 17:12] VITALS: BP 134/75; O2SAT 98
--- NOTE | 2023-09-21 18:24 | ED Physician Documentation ---
PD HPI LOWER EXT INJURY - Stated complaint Stated Complaint: L FOOT INJ - Chief complaint Chief Complaint: Trauma Ext - History obtained from History obtained from: Patient - History of Present Illness PD HPI LOW EXT INJURY LOCATION: Left, Foot Type of injury: Blunt / blow Where injury occurred: Home - Additional information Additional information: 83-year-old male presents with left foot pain after accidentally dropping a boat battery on it. Better is on its ground on the side and tipped over onto the foot so did not fall from a distance. But in any case he has pain across the forefoot. He tried elevating at home and using cool compress but like it was getting worse and wanted to be sure it was not broken. He does have a history of RA, not currently on any DMARDs. PD PAST MEDICAL HISTORY - Past Medical History Past Medical History: Yes Musculoskeletal: Rheumatoid arthritis - Past Surgical History Past Surgical History: Yes - Present Medications Home Medications: Ambulatory Orders Medication Instructions Recorded Confirmed Cholecalciferol (Vitamin D3) 1,000 unit PO DAILY 09/13/18 05/14/23 [Vitamin D3] Digestive 8/L.acidoph/Pectin 1 each PO DAILY 09/13/18 05/14/23 [Digestive Enzymes Tablet] L.acid/L.casei/B.bif/B.abdoulaye/Fos 1 each PO DAILY 09/13/18 05/14/23 [Probiotic Blend Capsule] Methotrexate Sodium/Pf 10 mg IJ Q7D 09/13/18 05/14/23 [Methotrexate 50 mg/2 ml Vial] Tumeric 1 cap PO DAILY 09/13/18 05/14/23 methylPREDNISolone [Medrol] 4 mg PO PRN PRN 12/31/22 05/14/23 HYDROcod/ACETAM 5/325 [Awendaw 5/325] 1 - 2 tablet PO Q6H PRN #14 tablet 09/21/23 - Allergies Allergies/Adverse Reactions: Allergies Allergy/AdvReac Type Severity Reaction Status Date / Time No Known Drug Allergies Allergy Verified 09/21/23 16:58 - Social History Does the pt smoke?: No Smoking Status: Never smoker Does the pt drink ETOH?: No Does the pt have substance abuse?: No - Immunizations Immunizations are current?: Yes - POLST Patient has POLST: No PD ED PE NORMAL - Vitals Vital signs reviewed: Yes - General General: Alert and oriented X 3, No acute distress, Well developed/nourished - Derm Derm: Normal color, Warm and dry, No rash - Extremities Extremities: Other (Med swelling of the dorsum of the left foot with tenderness particularly at the base of the first metatarsal, no other tenderness, no obvious deformities. No skin injuries.) Results - Vitals Vitals: Vital Signs - 24 hr 09/21/23 16:59 Temperature 36.7 C Heart Rate 60 Respiratory 16 Rate Blood Pressure 134/75 H O2 Saturation 98 Oxygen O2 Source Room air - Rads (name of study) No standard instances Relevant Findings:: Final report received PD Medical Decision Making - ED course Complexity details: reviewed results, re-evaluated patient, considered differential, d/w patient ED course: 83-year-old male presented with left foot pain after blunt trauma to the dorsum of the foot as described in HPI. On exam patient has mild swelling, no erythema no signs of infection no skin injuries. He is tender particularly at the base of the first metatarsal but no obvious deformity. X-ray does not show any acute fractures. I discussed with patient that treatment at this point would be supportive with a cool compress, elevation, and pain control as needed, will give as needed [place] and ibuprofen. Patient to follow-up with PCP if no improvement in next 7 to 10 days, return precautions reviewed. Departure - Departure Disposition: 01 Home, Self Care Clinical Impression: Contusion of left foot Qualifiers: Encounter type: initial encounter Qualified Code(s): S90.32XA - Contusion of left foot, initial encounter Condition: Good Instructions: ED Contusion Foot Prescriptions: HYDROcod/ACETAM 5/325 [Awendaw 5/325] 1 - 2 tablet PO Q6H PRN #14 tablet PRN Reason: Pain Comments: Thankfully, the x-ray does not show any broken bones in your foot. It still would be expected to be quite uncomfortable for the next couple of days, so use a cool compress, keep elevated and I have given you some hydrocodone to use as needed. You can also take ibuprofen. If no improvement in next week or so, follow-up with your primary doctor for repeat x-ray. Return to the ER if worsening. I am prescribing a short course of narcotic pain medication for you. These are potentially dangerous and addictive medications that should be used carefully. These medications may constipate you. Take an [id number] stool softener (docusate) twice daily with plenty of water while taking these medications. If you go 24 hours without a bowel movement, take [id number] miralax, per package instructions. Do not drink or drive while taking these medications. If you received narcotic or sedating medications while in the emergency dep artment, do not drive for 24 hours. Store this medication in a safe, secure place and out of reach of children. It is a violation of federal law to give or sell this medication to another person or to use in a manner other than prescribed. The ED will not refill narcotic prescriptions, including prescriptions lost or stolen. To dispose of unwanted medications: 1. [facility] provides a drop box for medication in pill form only (no liquids) 8:00 am to 4:30 p.m. Wednesday-Wednesday in the lobby of the [facility], [address] [place] [address]. Empty pills into ziplock bag before disposal. Call [phone] for information. 2.[employer] is a free service available to all [facility] residents. Go to [email or web address] Note that many narcotic pain relievers also contain Tylenol/acetaminophen. Please ensure that your total dose of acetaminophen from all sources does not exceed 3 g (3000 mg) per day. Forms: PCP List
--- NOTE | 2023-09-21 18:38 | XRAY Report ---
PROCEDURE: Foot 3+V LT INDICATIONS: Trauma TECHNIQUE: 3 views of the foot were acquired. COMPARISON: None. FINDINGS: Bones: Moderate diffuse osteopenia. Background polyarticular degenerative changes of the left foot. Plantar calcaneal enthesophyte. No definite fracture identified. No dislocation. No suspicious bony lesions. Soft tissues: No tibiotalar joint effusion. Achilles tendon appears normal. Soft tissue swelling o f the forefoot. IMPRESSION: Moderate diffuse osteopenia. No definite fracture identified. Polyarticular background degenerative c hanges of the left foot. Left forefoot soft tissue swelling. If there is persistent clinical concern for a radiographically occult fracture, recommend immobilizat ion and repeat imaging in 10 to 14 days. Reviewed by: Gagan Mcdonald MD on 09/21/2023 6:37 PM PDT Approved by: Gagan Mcdonald MD on 09/21/2023 6:37 PM PDT Station ID: [id number]
[2023-09-21] MEDS: HYDROcod/ACETAM 5/325 MG TABLET PO STA (19:27)
== END 2023-09-21 19:42 | disposition home or self-care (01) ==
LOC: ED 16:26
DX: S90.32XA Contusion of left foot, initial encounter (principal); W20.8XXA Other cause of strike by thrown, projected or falling object, initial encounter; M06.9 Rheumatoid arthritis, unspecified
CPT/HCPCS: 73630; 99283; A9270